=== PATIENT | male | born 1950 | race Caucasian/White ===

== ENCOUNTER 2018-12-09 10:30 | Day surgery (SDC) | payer OTHER ==
[2018-12-09] MEDS ORDERED: NA CHLORIDE 0.9% 500 ML ONE (11:04)
[2018-12-09] MEDS ORDERED: LIDOCAINE 2% MPF 5 ML VIAL ONE (11:04)
[2018-12-09] MEDS ORDERED: PHENYLEPHRINE 10% OPTH 5ML ONE (11:04)
[2018-12-09] MEDS ORDERED: BUPIVACAINE 0.25% PF 10 ML VIAL ONE (11:04)
[2018-12-09] MEDS ORDERED: CYCLOPENTOLATE 1% OPTH 2 ML ONE (11:04)
[2018-12-09] MEDS ORDERED: TETRACAINE HCL 0.5% 2ML OPTH ONE (11:04)
[2018-12-09] MEDS ORDERED: LIDOCAINE HCL/PF 3.5% OPTH GEL ONE (11:05)
[2018-12-09] MEDS ORDERED: DUOVISC 1 KIT OPTH ONE (11:10)
[2018-12-09] MEDS ORDERED: NS 0.9% VIAL 10 ML ONE (11:10)
[2018-12-09] MEDS ORDERED: LIDOCAINE 1% MPF 5 ML VIAL ONE (11:11)
[2018-12-09] MEDS ORDERED: PHENYLEPHRINE 10% OPTH 5ML OPTH ONE ×2 (11:15→11:32)
[2018-12-09] MEDS ORDERED: CYCLOPENTOLATE 1% OPTH 2 ML OPTH ONE ×2 (11:15→11:32)
[2018-12-09] MEDS: BALANCED SALT IRRIG PLAIN 500 ML BTL IRR ONE ×2 (12:10→12:14)
[2018-12-09] MEDS: EPINEPHRINE/PF 1 MG/ML AMP ONE ×2 (12:11→12:14)
[2018-12-09] MEDS: MOXIFLOXACIN HCL 10 DROPS/ML **OR USE OPTH ONE ×2 (12:13→12:15)
[2018-12-09] MEDS ORDERED: FENTANYL CITR 100 MCG/2 ML ONE (12:35)
[2018-12-09] MEDS ORDERED: MIDAZOLAM HCL 2 MG/2 ML INJ ONE (12:36)
--- NOTE | 2018-12-09 13:23 | P.BOP ---
Preoperative diagnosis: Nuclear sclerotic cataract OS Postoperative diagnosis: Same Primary procedure: Phacoemulsification with IOL OS Estimated blood loss: None Anesthesia: Local (Topical with anesthesia for cataract surgery) Complications: None Implants: SA60WF +21.0 Transferred to: Other (Day surgery) Condition: Good
--- NOTE | 2018-12-10 00:24 | OP ---
Date of Procedure: 12/09/2018 Surgeon: Shweta Jacobson MD Anesthesiologist: Shannen Galvin CRNA and Fei Gloria MD. Preoperative Diagnosis: Nuclear sclerotic cataract, left eye. Operation Performed: Phacoemulsification with intraocular lens implant, left eye. Anesthesia: Per cataract surgery. Complications: None. Description Of Procedure: In the operating room the patient was prepped and draped in the usual ster ile fashion for ophthalmic surgery. A lid speculum was placed in the left eye. Two paracentesis sit es were made superiorly and inferiorly in the limbal cornea. Viscoat was placed in the anterior ky bernie and a crescent blade was used to make a corneal groove and tunnel, and a keratome was used to ent er the anterior chamber. Provisc was placed in the anterior chamber and a 360 degree capsulotomy was performed with a cystitome. The lens was hydrodissected with BSS and rotated freely. The lens was removed with a stop and chop technique. 14.53 phaco CDE was used to remove the lens. Residual jovanny x was removed with the irrigation and aspiration. Provisc was placed in the capsular bag. A SA60WF +21.0 lens was placed in the capsular bag without complications. Irrigation and aspiration were used to remove residual viscoelastic. The paracentesis sites were hydrated with BSS. The wound and para centesis sites were inspected and found to be watertight. Vigamox 0.07 cc was placed intracamerally at the end of the procedure. The eye was irrigated with balanced salt solution. The eye was patched with a soft cotton patch and Louie metal shield. The patient was returned to day surgery in good condition. Comments: Akten was placed in the eye in the Day Surgery and then irrigated out of the eye in the OR with BSS. Preservative-free 1% lidocaine was placed in the anterior chamber prior to Viscoat. Discharge Instructions: Mr. Acuña is discharged to home in good condition. He is to follow up darwin Jacobson today at 3 and then in the a.m. JHL/MODL Voice ID: [id number] Report ID: [id number]
== END 2018-12-09 13:50 | disposition home or self-care (01) ==
LOC: OR 10:30
PROVIDERS: ATTEND Ophthalmology Retina Specialist
PROC: 08RK3JZ Replacement of Left Lens with Synthetic Substitute, Percutaneous Approach (ICD-10-PCS; principal; 2018-12-09 11:00)
DX: H25.12 Age-related nuclear cataract, left eye (principal); H40.9 Unspecified glaucoma; E78.5 Hyperlipidemia, unspecified
CPT/HCPCS: J0171; J2250; J3010